=== PATIENT | female | born 1945 | race Two or more races ===

== ENCOUNTER → 2017-12-31 | Outpatient (CLI) | payer MEDICARE, OTHER | END | disposition home or self-care (01) | LOC: HKI 09:19 | DX: M17.12 Unilateral primary osteoarthritis, left knee (principal) | CPT/HCPCS: 73562; 73562-50 ==

== ENCOUNTER → 2018-04-29 | Outpatient (CLI) | payer MEDICARE, OTHER | END | disposition home or self-care (01) | LOC: HKI 11:23 | DX: M17.12 Unilateral primary osteoarthritis, left knee (principal) | CPT/HCPCS: G0463 ==

== ENCOUNTER 2018-05-09 07:57 | Observation (INO) | payer MEDICARE, OTHER ==
[~2018-05-09 07:57] MED LIST: CEFAZOLIN 1 GM INJ; DEXAMETHASONE 4 MG/ML 1 ML INJ; METOCLOPRAMIDE 10 MG INJ; PROPOFOL 200 MG INJ; ROPIVACAINE 0.5 % 30 ML VIAL
[2018-05-09] MEDS: ACETAMINOPHEN 1000MG/100ML IV 100 ML IVPB (09:04)
[2018-05-09] MEDS: DEXAMETHASONE 4 MG/ML 1 ML INJ IV (09:04)
[2018-05-09] MEDS: LACTATED RINGER'S 1,000 ML IV* (09:06)
[2018-05-09] MEDS ORDERED: FENTAnyl 50 MCG/ML VIAL ×2 (10:46→12:49)
[2018-05-09] MEDS ORDERED: MIDAZOLAM 1 MG/ML 2 ML INJ (10:46)
[2018-05-09] MEDS ORDERED: ONDANSETRON 4 MG INJ (10:46)
[2018-05-09] MEDS ORDERED: PROPOFOL 20 ML (10:48)
[2018-05-09] MEDS ORDERED: LIDOCAINE 2% (SDV) 5 ML INJ (10:48)
[2018-05-09] MEDS ORDERED: BUPIVACAINE 0.75%/DEXT (SPINAL) 2 ML INJ (10:50)
[2018-05-09] MEDS ORDERED: EPINEPHrine 1 MG INJ (10:52)
[2018-05-09] MEDS ORDERED: BETHANECHOL 25 MG TAB PO (11:00)
[2018-05-09] MEDS ORDERED: oxyCODONE 5 MG TAB PO (11:00)
[2018-05-09] MEDS ORDERED: NALOXONE (0.4 MG/ML) INJ IV (11:00)
[2018-05-09] MEDS ORDERED: NA PHOSPHATE/BIPHOS 133 ML ENEMA PR (11:00)
[2018-05-09] MEDS ORDERED: BISACODYL 10 MG SUPP PR (11:00)
[2018-05-09] MEDS ORDERED: MAGNESIUM HYDROXIDE 30ML CUP PO (11:00)
[2018-05-09] MEDS ORDERED: DIPHENHYDRAMINE 50 MG INJ IV ×2 (11:00→11:30)
[2018-05-09] MEDS ORDERED: ONDANSETRON 4 MG INJ IV (11:30)
[2018-05-09] MEDS ORDERED: LEVALBUTEROL (NEB) 1.25 MG/0.5 ML AMP HHN (11:30)
[2018-05-09] MEDS ORDERED: LABETALOL HCL 20MG INJ IV (11:30)
[2018-05-09] MEDS ORDERED: hydrALAzine 20 MG INJ IV (11:30)
[2018-05-09] MEDS ORDERED: FENTAnyl 50 MCG/ML VIAL IV (11:30)
[2018-05-09] MEDS ORDERED: IPRATROPIUM (NEB) 0.5 MG/2.5 ML AMP HHN (11:30)
[2018-05-09] MEDS ORDERED: MEPERIDINE 25 MG INJ IV (11:30)
[2018-05-09] MEDS ORDERED: HYDROmorphONE 1 MG/5 ML IV SYRINGE IV ×2 (11:30)
[2018-05-09] MEDS: CEFAZOLIN 2 GM/50 ML (PMX) 50 ML IVPB (12:15)
[2018-05-09] MEDS: TRANEXAMIC ACID 1,000 MG in NS 100 ML INTRA-OP X1 IVPB ×2 (12:30→13:08)
[2018-05-09] MEDS: BACITRACIN 50000 UNITS INJ (13:02)
[2018-05-09] MEDS: POLYMYXIN B 500000 UNIT INJ (13:03)
[2018-05-09] MEDS: TRANEXAMIC ACID 1,000 MG in NS 100 ML PRE-OP X1 IVPB (13:08)
[2018-05-09] MEDS: ONDANSETRON 4 MG INJ IV ×3 (13:30→22:32)
[2018-05-09] MEDS ORDERED: GLUCOSE GEL 15 GRAM TUBE BUCCAL (14:00)
[2018-05-09] MEDS ORDERED: GLUCAGON 1 MG INJ IM (14:00)
[2018-05-09] MEDS ORDERED: DEXTROSE 50% 50 ML SYRINGE IV ×2 (14:00)
[2018-05-09] MEDS ORDERED: GLUCOSE GEL 15 GRAM TUBE PO ×2 (14:00)
[2018-05-09] MEDS: DOCUSATE SODIUM 100 MG CAP PO (14:56)
[2018-05-09] MEDS: CEFAZOLIN 1 GM/50 ML (PMX) 50 ML IVPB ×2 (14:57→18:39)
[2018-05-09] MEDS: ASPIRIN (EC) 325 MG TAB PO (14:57)
[2018-05-09] MEDS: HYDROmorphONE 1 MG/5 ML IV SYRINGE IV (15:25)
[2018-05-09] MEDS: FENTAnyl 50 MCG/ML VIAL IV (15:35)
[2018-05-09] MEDS: SOD CHLORIDE 0.9% 1,000 ML IV ×2 (16:35→23:26)
[2018-05-09] MEDS: INSULIN ASPART [NOVOLOG] 3 ML PEN SC ×2 (17:53→21:00)
[2018-05-09] MEDS: oxyCODONE 5 MG TAB PO (18:39)
[2018-05-09] MEDS: CELECOXIB 100 MG CAP PO (21:00)
[2018-05-09] MEDS: GABAPENTIN 100 MG CAP PO (21:00)
[2018-05-09] MEDS: CYANOCOBALAMIN 1000 MCG INJ IM (21:22)
[2018-05-10] MEDS: CEFAZOLIN 1 GM/50 ML (PMX) 50 ML IVPB (02:46)
[2018-05-10] MEDS: oxyCODONE 5 MG TAB PO ×2 (04:22→23:37)
[2018-05-10] MEDS: ONDANSETRON 4 MG INJ IV (04:26)
[2018-05-10 05:05] LABS: ADD MAN DIFF? NO
[2018-05-10 05:07] LABS: WHITE BLOOD COUNT 10.4 10^3/ul (4.8-10.8)
[2018-05-10 05:07] LABS: BASOPHILS % 0.1 % (0.0-2.0); HEMATOCRIT 29.3 % (37.0-47.0); HEMOGLOBIN 9.3 g/dl (12.0-16.0); LYMPHOCYTES # 1.4 10^3/ul (0.8-2.9); LYMPHOCYTES % 13.4 % (15.0-51.0); MEAN CORPUSCULAR HGB CONC 31.7 g/dl (32.0-37.0); MEAN CORPUSCULAR VOLUME 84.9 fl (82.0-101.0); MONOCYTE # 0.9 10^3/ul (0.3-0.9); MONOCYTES % 8.2 % (0.0-11.0); NEUTROPHIL # 8.1 10^3/ul (1.6-7.5); PLATELET COUNT 193 10^3/UL (140-415); RED BLOOD COUNT 3.45 10^6/ul (4.20-5.40); RED CELL DISTRIBUTION WIDTH 14.8 % (11.5-14.5)
[2018-05-10 05:54] LABS: ANION GAP 10 (8-16); BLOOD UREA NITROGEN 14 mg/dl (7-20); CALCIUM 8.7 mg/dl (8.4-10.2); CARBON DIOXIDE 25 mmol/L (21-31); CHLORIDE 109 mmol/L (97-110); CREATININE 0.55 mg/dl (0.44-1.00); GLUCOSE 124 mg/dl (70-220); POTASSIUM 4.3 mmol/L (3.5-5.1); SODIUM 140 mmol/L (135-144)
[2018-05-10] MEDS: INSULIN ASPART [NOVOLOG] 3 ML PEN SC ×4 (07:50→20:08)
[2018-05-10] MEDS: FERROUS FUMARATE (SR) TAB PO ×2 (08:41→20:07)
[2018-05-10] MEDS: metFORMIN 500 MG TAB PO (08:42)
[2018-05-10] MEDS: CELECOXIB 100 MG CAP PO ×2 (08:42→20:07)
[2018-05-10] MEDS: DOCUSATE SODIUM 100 MG CAP PO ×2 (08:42→20:07)
[2018-05-10] MEDS: ASPIRIN (EC) 325 MG TAB PO (08:42)
[2018-05-10] MEDS: LISINOPRIL 10 MG TAB PO (08:43)
[2018-05-10] MEDS: GABAPENTIN 300 MG CAP PO (08:43)
[2018-05-10] MEDS: GABAPENTIN 100 MG CAP PO (20:08)
[2018-05-11 05:14] LABS: ADD MAN DIFF? NO
[2018-05-11 05:16] LABS: BASOPHILS % 0.5 % (0.0-2.0); EOSINOPHILS # 0.1 10^3/ul (0.0-0.5); EOSINOPHILS % 1.8 % (0.0-7.0); HEMATOCRIT 28.8 % (37.0-47.0); HEMOGLOBIN 9.2 g/dl (12.0-16.0); LYMPHOCYTES # 3.1 10^3/ul (0.8-2.9); LYMPHOCYTES % 42.1 % (15.0-51.0); MEAN CORPUSCULAR HEMOGLOBIN 27.8 pg (29.0-33.0); MEAN CORPUSCULAR HGB CONC 31.9 g/dl (32.0-37.0); MEAN PLATELET VOLUME 10.8 fl (7.4-10.4); MONOCYTE # 0.7 10^3/ul (0.3-0.9); MONOCYTES % 9.4 % (0.0-11.0); NEUTROPHIL # 3.4 10^3/ul (1.6-7.5); NEUTROPHILS % 45.8 % (39.0-77.0); PLATELET COUNT 177 10^3/UL (140-415); RED BLOOD COUNT 3.31 10^6/ul (4.20-5.40); RED CELL DISTRIBUTION WIDTH 15.3 % (11.5-14.5)
[2018-05-11 05:16] LABS: WHITE BLOOD COUNT 7.3 10^3/ul (4.8-10.8)
[2018-05-11] MEDS: PANTOPRAZOLE (EC) 40 MG TAB PO (05:26)
[2018-05-11 05:43] LABS: ANION GAP 7 (8-16); BLOOD UREA NITROGEN 16 mg/dl (7-20); CALCIUM 8.4 mg/dl (8.4-10.2); CARBON DIOXIDE 27 mmol/L (21-31); CHLORIDE 109 mmol/L (97-110); CREATININE 0.62 mg/dl (0.44-1.00); GLUCOSE 98 mg/dl (70-220); POTASSIUM 4.3 mmol/L (3.5-5.1); SODIUM 139 mmol/L (135-144)
[2018-05-11] MEDS: INSULIN ASPART [NOVOLOG] 3 ML PEN SC ×4 (07:50→20:51)
[2018-05-11] MEDS: metFORMIN 500 MG TAB PO (08:26)
[2018-05-11] MEDS: ASPIRIN (EC) 325 MG TAB PO (08:27)
[2018-05-11] MEDS: FERROUS FUMARATE (SR) TAB PO ×2 (08:27→20:50)
[2018-05-11] MEDS: DOCUSATE SODIUM 100 MG CAP PO ×2 (08:27→20:50)
[2018-05-11] MEDS: GABAPENTIN 300 MG CAP PO (08:27)
[2018-05-11] MEDS: CELECOXIB 100 MG CAP PO ×2 (08:27→20:55)
[2018-05-11] MEDS: SENNA/DOCUSATE NA (8.6MG/50MG) TAB PO (08:28)
[2018-05-11] MEDS: oxyCODONE 5 MG TAB PO (08:28)
[2018-05-11] MEDS: LISINOPRIL 10 MG TAB PO (08:31)
[2018-05-11] MEDS: GABAPENTIN 100 MG CAP PO (20:50)
[2018-05-12 05:08] LABS: ADD MAN DIFF? NO
[2018-05-12 05:17] LABS: BASOPHIL # 0.1 10^3/ul (0.0-0.1); BASOPHILS % 0.7 % (0.0-2.0); EOSINOPHILS # 0.2 10^3/ul (0.0-0.5); EOSINOPHILS % 3.1 % (0.0-7.0); HEMATOCRIT 30.5 % (37.0-47.0); HEMOGLOBIN 9.5 g/dl (12.0-16.0); LYMPHOCYTES # 2.6 10^3/ul (0.8-2.9); LYMPHOCYTES % 37.7 % (15.0-51.0); MEAN CORPUSCULAR HEMOGLOBIN 26.6 pg (29.0-33.0); MEAN CORPUSCULAR HGB CONC 31.1 g/dl (32.0-37.0); MEAN CORPUSCULAR VOLUME 85.4 fl (82.0-101.0); MEAN PLATELET VOLUME 10.6 fl (7.4-10.4); MONOCYTE # 0.7 10^3/ul (0.3-0.9); MONOCYTES % 9.5 % (0.0-11.0); NEUTROPHIL # 3.4 10^3/ul (1.6-7.5); NEUTROPHILS % 48.7 % (39.0-77.0); PLATELET COUNT 194 10^3/UL (140-415); RED BLOOD COUNT 3.57 10^6/ul (4.20-5.40); RED CELL DISTRIBUTION WIDTH 15.5 % (11.5-14.5)
[2018-05-12 05:17] LABS: WHITE BLOOD COUNT 6.9 10^3/ul (4.8-10.8)
[2018-05-12 05:41] LABS: ANION GAP 10 (8-16); BLOOD UREA NITROGEN 13 mg/dl (7-20); CARBON DIOXIDE 29 mmol/L (21-31); CHLORIDE 106 mmol/L (97-110); GLUCOSE 98 mg/dl (70-220); SODIUM 141 mmol/L (135-144)
[2018-05-12] MEDS: PANTOPRAZOLE (EC) 40 MG TAB PO (05:46)
[2018-05-12] MEDS: INSULIN ASPART [NOVOLOG] 3 ML PEN SC ×2 (07:50→12:30)
[2018-05-12] MEDS: DOCUSATE SODIUM 100 MG CAP PO (09:21)
[2018-05-12] MEDS: oxyCODONE 5 MG TAB PO ×2 (09:21→14:55)
[2018-05-12] MEDS: ASPIRIN (EC) 325 MG TAB PO (09:22)
[2018-05-12] MEDS: metFORMIN 500 MG TAB PO (09:22)
[2018-05-12] MEDS: LISINOPRIL 10 MG TAB PO (09:22)
[2018-05-12] MEDS: GABAPENTIN 300 MG CAP PO (09:22)
[2018-05-12] MEDS: FERROUS FUMARATE (SR) TAB PO (09:22)
[2018-05-12] MEDS: CELECOXIB 100 MG CAP PO (09:22)
== END 2018-05-12 16:45 | disposition home health service (06) ==
LOC: REC 07:57 → MS1 15:35
PROVIDERS: Orthopaedic Surgery
DX: M17.12 Unilateral primary osteoarthritis, left knee (principal); E11.9 Type 2 diabetes mellitus without complications; I10 Essential (primary) hypertension; E53.8 Deficiency of other specified B group vitamins; K21.9 Gastro-esophageal reflux disease without esophagitis
CPT/HCPCS: 27447; 73560; 80048; 82962; 85025; 86850; 86900; 86901; 87081; 88304; 88311; 97110; 97116; 97162; 97167; 97530; 99217

== ENCOUNTER → 2018-05-24 | Outpatient (CLI) | payer MEDICARE, OTHER | END | disposition home or self-care (01) | LOC: HKI 09:13 | DX: Z09 Encounter for follow-up examination after completed treatment for conditions other than malignant neoplasm (principal); M25.562 Pain in left knee; E11.8 Type 2 diabetes mellitus with unspecified complications; Z79.84 Long term (current) use of oral hypoglycemic drugs; Z96.652 Presence of left artificial knee joint | CPT/HCPCS: 73560; 73560-LT ==

== ENCOUNTER → 2018-06-24 | Outpatient (CLI) | payer MEDICARE, OTHER | END | disposition home or self-care (01) | LOC: HKI 10:02 | DX: Z47.1 Aftercare following joint replacement surgery (principal); Z96.652 Presence of left artificial knee joint | CPT/HCPCS: 73560; 73560-LT ==

== ENCOUNTER → 2018-08-01 | Outpatient (CLI) | payer MEDICARE, OTHER | END | disposition home or self-care (01) | LOC: HKI 08:58 | DX: Z09 Encounter for follow-up examination after completed treatment for conditions other than malignant neoplasm (principal); M25.562 Pain in left knee; Z96.652 Presence of left artificial knee joint | CPT/HCPCS: 73560; 73560-LT ==